=== PATIENT | male | born 1950 | race American Indian/Alaskan Native ===

== ENCOUNTER 2024-02-15 11:48 | Inpatient (IN) | payer MEDICARE, OTHER ==
[~2024-02-15] VITALS: Ht 172.7 cm; Wt 108.4 kg
[~2024-02-15 11:48] MED LIST: ACETAMINOPHEN 1000MG 100ML IV BAG As Ordered ONE; ASPI81TA26 PO; ATOR40TA75 PO; ELIQ5TAB PO; FLOM0.4C39 PO; HYDROmorphone HCL 2MG/ML 1ML VIAL As Ordered ONE; INSU100I59 SQ; KETOROLAC 60MG 2ML VIAL As Ordered ONE; LANTINJ4 SC; LIDOCAINE 2% 100MG/5ML SDV (FOR ANES.) As Ordered ONE; LOPR1TAB6 PO; METF-877 PO; METF10004 PO; METO1TAB7 PO; ONDANSETRON 4MG 2ML VIAL As Ordered ONE; ROCURONIUM BROMIDE 50MG/5ML VIAL As Ordered ONE; SPIR-10 PO; SUGAMMADEX SODIUM 500 MG/5 ML VIAL (BRIDION) As Ordered ONE; SYMB80INH INH; TAMS1CAP17 PO; TELM1TAB37 PO; VITA500075 PO; fentaNYL 100 MCG/2 ML INJECTION As Ordered ONE; propofoL 200 MG/20 ML VIAL As Ordered ONE
[2024-02-15] MEDS ORDERED: INSULIN LISPRO (NovoLOG) PER UNIT SC PRN (11:55)
[2024-02-15] MEDS ORDERED: GLUCOSE 4 GM CHEW PO PRN ×2 (11:55→12:30)
[2024-02-15] MEDS: LR 1,000 ML IV SCH (11:55)
[2024-02-15] MEDS ORDERED: GLUCAGON INJ 1MG VIAL SC PRN ×2 (11:55→12:30)
[2024-02-15] MEDS ORDERED: DEXTROSE 50% 50ML SYRINGE IV PRN ×2 (11:55→12:30)
[2024-02-15] MEDS ORDERED: ONDANSETRON 4MG 2ML VIAL IV PRN ×3 (12:30→22:15)
[2024-02-15] MEDS ORDERED: NS 500 ML IV SCH (12:30)
[2024-02-15] MEDS ORDERED: PERCOCET 5MG/325MG TAB PO PRN ×2 (12:30)
[2024-02-15] MEDS ORDERED: ACETAMINOPHEN 325 MG TAB PO PRN ×2 (12:30→22:15)
[2024-02-15] MEDS: ceFAZolin SOD 2 GM in IV 1 EA IV ONE (13:01)
[2024-02-15] MEDS: HEPARIN SOD (PORCINE) 5000UNITS/ML 1ML VIAL/SYRINGE SQ ONE (13:18)
[2024-02-15 13:24] LABS: INR 1.02; PROTHROMBIN TIME 13.7 SECONDS (12.5-14.5)
[2024-02-15] MEDS ORDERED: ATOR40TA75 PO (14:27)
[2024-02-15] MEDS ORDERED: HOME MED LIST COMPLETE! XX SCH (14:30)
[2024-02-15] MEDS: ceFAZolin 1GM VIAL As Ordered ONE (17:00)
[2024-02-15] MEDS ORDERED: LABETALOL 100MG/20ML VIAL As Ordered ONE (17:03)
[2024-02-15] MEDS: INSULIN LISPRO (NovoLOG) PER UNIT SC SCH ×2 (17:30→21:00)
[2024-02-15] MEDS: LIDOCAINE 1% SDV 30ML VIAL As Ordered ONE (17:45)
[2024-02-15] MEDS ORDERED: fentaNYL 100 MCG/2 ML INJECTION IV PRN (17:55)
[2024-02-15] MEDS ORDERED: oxyCODONE 5MG TAB PO PRN (17:55)
[2024-02-15 18:49] LABS: HEMATOCRIT 38.8 % (42.0-52.0); MEAN CORPUSCULAR HEMOGLOBIN 29.6 pg (27.0-33.0); MEAN CORPUSCULAR HGB CONC 33.5 g/dl (32.0-36.5); MEAN CORPUSCULAR VOLUME 88.4 fl (80.0-96.0); PLATELET COUNT, AUTOMATED 160 10^3/uL (150-450); RED BLOOD COUNT 4.39 10^6/uL (4.30-6.10); WHITE BLOOD COUNT 9.5 10^3/uL (4.0-10.0)
[2024-02-15 19:19] LABS: BLOOD UREA NITROGEN 20 MG/DL (9-23); CALCIUM LEVEL 8.8 MG/DL (8.3-10.6); CARBON DIOXIDE LEVEL 25 MMOL/L (20-31); CHLORIDE LEVEL 109 MMOL/L (98-107); CREATININE FOR GFR 0.85 MG/DL (0.70-1.30); GLOMERULAR FILTRATION RATE > 60.0 (>42); GLUCOSE, FASTING 97 MG/DL (74-106); POTASSIUM SERUM 3.9 MMOL/L (3.5-5.1); SODIUM LEVEL 142 MMOL/L (136-145)
[2024-02-15 20:00] VITALS: BP 124/76; TEMP 97.5; O2SAT 100; O2SAT 95
[2024-02-15 20:30] VITALS: BP 124/75; TEMP 97.5; O2SAT 99
[2024-02-15 21:00] VITALS: BP 123/75; TEMP 97.2; O2SAT 99
[2024-02-15] MEDS ORDERED: ceFAZolin SOD 1 GM in DEXTROSE 5% (D5W) ADV/MINI-BAG 50 ML IV SCH (21:00)
[2024-02-15] MEDS ORDERED: DOCUSATE SODIUM 100MG CAPSULE PO SCH (21:00)
[2024-02-15 22:00] VITALS: BP 124/75; TEMP 97.7; O2SAT 99
[2024-02-15] MEDS ORDERED: HEPARIN SOD (PORCINE) 5000UNITS/ML 1ML VIAL/SYRINGE SC SCH (22:00)
[2024-02-15] MEDS: NS 500 ML IV SCH (22:15)
[2024-02-15] MEDS: ceFAZolin SOD 1 GM in DEXTROSE 5% (D5W) ADV/MINI-BAG 50 ML IV SCH (22:51)
[2024-02-15] MEDS: ATORVASTATIN 20 MG TAB PO SCH (22:51)
[2024-02-15] MEDS: METOPROLOL SUCC (TopROL XL) 100MG *XL* TAB PO SCH (22:52)
[2024-02-15 23:00] VITALS: BP 135/86; TEMP 97.7; O2SAT 99
[2024-02-16] VITALS (9 sets, daily range): BP systolic 118–155; BP diastolic 76–88; TEMP 97.1–98.8; O2SAT 94–100
[2024-02-16 05:52] LABS: HEMATOCRIT 37.1 % (42.0-52.0); HEMOGLOBIN 12.2 g/dl (13.5-17.5); MEAN CORPUSCULAR HEMOGLOBIN 29.8 pg (27.0-33.0); MEAN CORPUSCULAR HGB CONC 32.9 g/dl (32.0-36.5); MEAN CORPUSCULAR VOLUME 90.7 fl (80.0-96.0); PLATELET COUNT, AUTOMATED 166 10^3/uL (150-450); RED BLOOD COUNT 4.09 10^6/uL (4.30-6.10); WHITE BLOOD COUNT 9.8 10^3/uL (4.0-10.0)
[2024-02-16 06:17] LABS: BLOOD UREA NITROGEN 24 MG/DL (9-23); CALCIUM LEVEL 8.6 MG/DL (8.3-10.6); CARBON DIOXIDE LEVEL 26 MMOL/L (20-31); CHLORIDE LEVEL 107 MMOL/L (98-107); CREATININE FOR GFR 0.84 MG/DL (0.70-1.30); GLOMERULAR FILTRATION RATE > 60.0 (>42); GLUCOSE, FASTING 167 MG/DL (74-106); POTASSIUM SERUM 4.4 MMOL/L (3.5-5.1); SODIUM LEVEL 140 MMOL/L (136-145)
[2024-02-16] MEDS: HEPARIN SOD (PORCINE) 5000UNITS/ML 1ML VIAL/SYRINGE SC SCH (06:21)
[2024-02-16] MEDS: DOCUSATE SODIUM 100MG CAPSULE PO SCH (08:05)
[2024-02-16] MEDS: SPIRONOLACTONE 25 MG TAB PO SCH (08:05)
[2024-02-16] MEDS: METOPROLOL SUCC (TopROL XL) 50MG **XL** TAB PO SCH (08:05)
[2024-02-16] MEDS ORDERED: CIPR-249 PO (08:13)
[2024-02-16] MEDS ORDERED: COLA100C5 PO (08:13)
[2024-02-16] MEDS ORDERED: PERCOCET PO (08:13)
[2024-02-16] MEDS ORDERED: ATORVASTATIN 20 MG TAB PO SCH (09:00)
[2024-02-16] MEDS ORDERED: TELMISARTAN 20 MG TAB PO SCH (09:00)
== END 2024-02-16 13:37 | disposition home or self-care (01) | DRG 708 ==
LOC: M SDC 11:48 → M MSPAV 22:13
PROVIDERS: ADMIT Urology; ATTEND Urology
PROC: 8E0W4CZ Robotic Assisted Procedure of Trunk Region, Percutaneous Endoscopic Approach (ICD-10-PCS; 2024-02-15)
PROC: 0VT04ZZ Resection of Prostate, Percutaneous Endoscopic Approach (ICD-10-PCS; principal; 2024-02-15 12:45)
DX: C61 Malignant neoplasm of prostate (principal)